=== PATIENT | male | born 1945 | race Caucasian/White ===

== ENCOUNTER 2024-08-24 09:50 | Day surgery (SDC) | payer OTHER, SELFPAY ==
[2024-08-24] VITALS (9 sets, daily range): BP systolic 109–168; BP diastolic 68–83; PULSE 81–105; RESP 12–23; TEMP 36.3–36.6; O2SAT 93–99; BMI 18.8
[2024-08-24] MEDS: DiphenhydrAMINE INJ 50 MG/ML VIAL 25 MG IV (11:32)
[2024-08-24] MEDS: fentaNYL CIT INJ 50 mCg/ML AMP 2ML (ASD USE ONLY) IV (11:45)
[2024-08-24] MEDS: MIDAZOLAM INJ 1 MG/ML VIAL 2 ML (ASD USE ONLY) 2 MG IV (11:45)
== END 2024-08-24 12:40 | disposition home or self-care (01) ==
PROVIDERS: PCP Internal Medicine; Referring Provider Specialist; Visit Provider Specialist
PROC: 0DBE8ZX Excision of Large Intestine, Via Natural or Artificial Opening Endoscopic, Diagnostic (ICD-10-PCS; CPT 45380; principal; 2024-08-24 13:15)
DX: K64.9 Unspecified hemorrhoids (principal); K57.30 Diverticulosis of large intestine without perforation or abscess without bleeding
CPT/HCPCS: 45378; J1200; J2250; J3010

== ENCOUNTER → 2024-10-30 | Outpatient (CLI) | payer OTHER, SELFPAY ==
[2024-10-30 11:38] LABS: Basophils # (Auto) 0.1 Thou/mm3 (0.0-0.2); Basophils % (Auto) 1 % (0-2.5); Eosinophils # (Auto) 1.7 Thou/mm3 (0.0-0.5); Eosinophils % (Auto) 19 % (0-10); Hematocrit 41.1 % (41.0-53.0); Hemoglobin 13.3 g/dL (13.5-16.0); Immature Granulocytes % (Auto) 0 % (0-0); Immature Granulocytes Auto 0.03 Thou/mm3 (0.00-0.00); Lymphocytes # (Auto) 1.4 Thou/mm3 (1.0-4.8); Lymphocytes % (Auto) 16 % (10-50); Mean Corpuscular HGB Conc 32.4 g/dl (31.0-37.0); Mean Corpuscular Volume 90 fL (80-100); Monocytes # (Auto) 0.7 Thou/mm3 (0.0-0.8); Monocytes % (Auto) 8 % (0-12); Neutrophils % (Auto) 56 % (37-80); Nucleated Red Blood Cell % 0 /100 WBC (0); Platelet Count 332 Thou/mm3 (140-440); RDW Standard Deviation 46.5 fL (35.1-43.9); Red Blood Count 4.59 Miln/mm3 (4.50-5.90); White Blood Count 8.9 Thou/mm3 (3.8-10.6)
[2024-10-30 12:10] LABS: Folate > 24.00 ng/mL (>5.38); Vitamin B12 1289 pg/mL (211-911); Vitamin D 25 Hydroxy Total 76.1 ng/mL (7.3-40.2)
[2024-10-30 12:23] LABS: Alanine Aminotransferase 16 U/L (10-49); Albumin, Serum 4.1 gm/dL (3.4-4.8); Alkaline Phosphatase 85 U/L (46-116); Anion Gap 5 (7-16); Aspartate Amino Transferase 20 U/L (0-34); BUN/Creatinine Ratio 16 Ratio (12-20); Bilirubin,Total 0.5 mg/dL (0.3-1.2); Blood Urea Nitrogen 14 mg/dL (9-23); Calcium 9.4 mg/dL (8.3-10.6); Calcium (Corrected) 9.4 mg/dL (8.5-10.1); Carbon Dioxide 28.8 mMol/L (20.0-31.0); Chloride 104 mMol/L (98-107); Creatinine (Component) 0.9 mg/dL (0.6-1.3); Free T4 (Free Thyroxine) 1.33 ng/dL (0.89-1.76); Globulin 2.1 gm/dL (2.3-3.5); Glucose 91 mg/dL (74-106); Iron 129 mcg/dL (65-175); Osmolality,Calculated 276 (275-295); Potassium 4.5 mMol/L (3.4-5.1); Sodium 138 mMol/L (136-145); Thyroid Stimulating Hormone 0.63 uIU/mL (0.55-4.78); Total Protein 6.2 gm/dL (5.7-8.2); eGFR > 60 See Note
[2024-10-30 13:45] LABS: Ferritin 41 ng/mL (10.5-307.3)
[2024-10-30 13:46] LABS: Glucose Estimated Average 108 mg/dL (80-131); Hemoglobin A1C 5.4 % Hgb (4.8-6.0)
[2024-10-30 13:47] LABS: Cardiac Risk Estimate 3.3 RATIO (4.0-6.7); Cholesterol 208 mg/dL (132-200); HDL Cholesterol 64 mg/dL (40-60); LDL Cholesterol,Calculated 117 mg/dL (0-130); Triglycerides 134 mg/dL (30-150)
== END | disposition home or self-care (01) ==
LOC: COPL 10:17
PROVIDERS: PCP Internal Medicine; Referring Provider Internal Medicine; Visit Provider Internal Medicine
DX: Z00.00 Encounter for general adult medical examination without abnormal findings (principal)
CPT/HCPCS: 36415; 80053; 80061; 82306; 82607; 82728; 82746; 83036; 83540; 84439; 84443; 85025

== ENCOUNTER 2025-07-15 15:06 | Emergency (ER) | payer OTHER, SELFPAY ==
[2025-07-15 15:35] VITALS: BP 145/80; PULSE 77; RESP 17; TEMP 36.8; O2SAT 95; BMI 19.1
--- NOTE | 2025-07-15 15:47 | PD.EDHIP ---
Lower Extremity Injury RME/HPI General Chief Complaint: Hip Injury/Pain Stated Complaint: L HIP PAIN FOR WEEKS WORSE TODAY Time Seen by Provider: 07/15/25 15:44 Arrival date/time: 07/15/25 15:06 79-year-old male presents to the Emergency Department today for complaints of left hip pain patient report symptoms ongoing times a few weeks intermittently patient reports no numbness or tingling reports no fever or vomiting. Reports no flank pain. Limitations: no limitations Related Data Home Medications ?Medication ?Instructions ?Recorded ?Confirmed amlodipine 2.5 mg tablet 2.5 mg PO QDAY ##180 08/17/16 08/24/24 tamsulosin 0.4 mg capsule 0.4 mg PO QDAY ##90 08/17/16 08/24/24 finasteride 5 mg tablet 5 mg PO QDAY 02/08/21 08/24/24 fluticasone fur. 200 mcg-umeclid 1 inh inhalation QDAY 08/24/24 08/24/24 62.5 mcg-vilant 25 mcg inhalat.powder (Trelegy Ellipta) pantoprazole 40 mg tablet,delayed 40 mg PO QDAY 08/24/24 08/24/24 release Previous Rx's ?Medication ?Instructions ?Recorded cyclobenzaprine 5 mg tablet 5 mg PO TID PRN muscle spasm #30 07/15/25 tabs hydrocodone 5 mg-acetaminophen 325 1 tab PO BID PRN pain #10 tabs 07/15/25 mg tablet Allergies Allergy/AdvReac Type Severity Reaction Status Date / Time Iodinated Contrast Media Allergy Severe DIFFICULTY Verified 07/15/25 15:09 BREATHING SHELLFISH Allergy Intermediate ITCHING Uncoded 07/15/25 15:09 HIVES Review of Systems Review of Systems Systems Reviewed: All systems reviewed, normal except as documented Constitutional Constitutional: Reports system reviewed and no additional complaints, except as documented, Denies fever(s) and Denies headache(s) Eyes Eyes: Reports system reviewed and no additional complaints, except as documented and Denies blurry vision ENT Ears, Nose, Mouth, and Throat: Reports system reviewed and no additional complaints, except as documented, Denies headache(s), Denies nasal congestion and Denies nasal discharge Cardiovascular Cardiovascular: Reports system reviewed and no additional complaints, except as documented, Denies chest pain and Denies dyspnea Respiratory Respiratory: Reports system reviewed and no additional complaints, except as documented, Denies chest congestion, Denies cough and Denies dyspnea Gastrointestinal Gastrointestinal: Reports system reviewed and no additional complaints, except as documented and Denies abdominal pain Musculoskeletal Musculoskeletal: Reports system reviewed and no additional complaints, except as documented, Reports arthralgias, Denies deformity and Reports other (Hip pain left knee) Integumentary/Breasts Skin/Breast: Reports system reviewed and no additional complaints, except as documented and Denies rash Neurologic Neurologic: Reports system reviewed and no additional complaints, except as documented, Reports as per HPI and Denies headache(s) Past Medical History Past Medical History NEUROLOGIC: Negative Neurological Disorders or Seizures CARDIAC: Positive Cardiac Disorders, Hypercholesterolemia and Hypertension; Negative Congestive Heart Failure RESPIRATORY: Negative Chronic Obstructive Pulmonary Disease (COPD) GASTROINTESTINAL: Positive Gastrointestinal Disorders, Hemorrhoids and Gastroesophageal Reflux Disease GENITOURINARY: Positive Genitourinary Disorders and Benign Prostatic Hyperplasia; Negative Renal Disease MUSCULOSKELETAL: Positive Musculoskeletal Disorders and Scoliosis ENT: Positive Glaucoma ENDOCRINE: Negative Diabetes Mellitus Type 1 or Diabetes Mellitus Type 2 HEMATOLOGIC: Positive Blood Disorders and Anemia OTHER HISTORY: Positive Falls, Chicken Pox, Measles and Pertussis; Negative Hospitalization, Down Syndrome, Developmental Delay, Blood Transfusions or Anesthesia Reactions Surgical History SURGICAL: Positive Eye Surgery, Tonsillectomy and Adenoidectomy Social History SMOKING STATUS: Heavy (> 1 pack/day) ED Exam General Limitations: Present no limitations General appearance: Present alert and in no apparent distress Head Head exam: Present atraumatic, normocephalic and normal inspection Eye Eye exam: Present normal appearance, PERRL and EOMI; Absent conjunctival injection ENT ENT exam: Present normal exam, normal oropharynx and mucous membranes moist Neck Neck exam: Present normal inspection, full ROM and trachea midline Chest Chest inspection: Present normal inspection and symmetric chest wall rise Respiratory Respiratory exam: Present normal lung sounds bilaterally Cardiovascular Cardiovascular exam: Present regular rate, normal rhythm and normal heart sounds Abdominal Exam Abdominal exam: Present soft and normal bowel sounds; Absent distention or tenderness Extremities Exam Extremities exam: Present normal inspection, full ROM and tenderness (Left buttock pain radiating down left leg) Back Exam Back exam: Present normal inspection and full ROM; Absent tenderness Neurological Exam Neurological exam: Present alert, oriented X3 and CN II-XII intact Psychiatric Psychiatric exam: Present normal affect and normal mood Skin Skin exam: Present warm, dry, intact and normal color Course Quality Measures none Orders Category Date Time Status Dexamethasone Inj [Decadron Inj] Med 07/15/25 15:44 Discontinued 10 mg PO X1 ONE Ketorolac Inj [Toradol Inj] Med 07/15/25 15:44 Discontinued 30 mg IM X1 ONE Vital Signs Vital signs: Vital Signs Temperature 98.2 F 07/15/25 15:35 Pulse Rate 77 07/15/25 15:35 Respiratory Rate 17 07/15/25 15:35 Blood Pressure 145/80 H 07/15/25 15:35 Pulse Oximetry (%) 95 07/15/25 15:35 Oxygen Delivery Method Room Air 07/15/25 15:35 O2 saturation 95% on room air within normal limits Extremity Injury, Lower MDM Narrative MDM Narrative:: 79-year-old male presents to the Emergency Department today for complaints of left hip pain patient report symptoms ongoing times a few weeks intermittently patient reports no numbness or tingling reports no fever or vomiting. Reports no flank pain. On exam patient well-appearing patient is not appear look toxic distress patient does have pain left sciatic notch worse with movement Symptoms consistent with sciatica Imaging considered but not ordered Patient pain medication or discharge home with pain medications Explained to patient he needs to follow-up with his PCP for further evaluation and imaging for worsening symptoms return immediately Patient data External records reviewed:: [facility] previous records Clinical information provided by:: patient Social determinants that could affect healthcare access:: none Patient has the following chronic illnesses:: History How is presenting disease/condition affected by chronic disease/condition?: uneffected by Evaluation data The following diagnostics were reviewed and interpreted by me:: other (specify) (N/A) Lab and/or radiology exams considered but not ordered:: Considered not ordered Interpretation Summary: N/A Medications / Prescriptions Medications or Prescriptions considered but not ordered:: Given Medication administrations:: Medication Administration History Discontinued Medications Dexamethasone Sodium Phosphate (Dexamethasone Sod Phos Inj 10 Mg/Ml Vial) 10 mg PO X1 ONE Stop: 07/15/25 15:45 Last Admin: 07/15/25 16:17 Dose: 10 mg Documented By: SHERRIE Ketorolac Tromethamine (Ketorolac Inj 30 Mg/Ml Vial) 30 mg IM X1 ONE Stop: 07/15/25 15:45 Last Admin: 07/15/25 16:18 Dose: 30 mg Documented By: SHERRIE Given Consultations Consultation(s) initiated? (list below): No Diagnosis Extremity Injury, Lower Differential Diagnosis: other (Hip pain, hip strain) Most likely diagnosis given after review of the tests above:: Hip pain left, sciatica Admission Indicated Admission indicated?: not indicated Admission Request Was there a request for admission?: No Disposition Plan Disposition Plan: Discharge Discharge Attestation Discharge Attestation: The patient and all family members were given an opportunity to ask questions and understood the discharge instructions. Discharge instructions specifically effects, indications for sooner follow up or return to the emergency department, and the expected course of current diagnosis. Patient condition: Stable Discharge Plan Plan Patient Disposition: HOME (Self Care) Discharge Disposition comment: Stable Prescriptions/Referrals Prescriptions/Med Rec: New hydrocodone-acetaminophen 5-325 mg tablet 1 tab PO BID MDD 10 PRN (Reason: pain) Qty: 10 0RF cyclobenzaprine 5 mg tablet 5 mg PO TID PRN (Reason: muscle spasm) Qty: 30 0RF No Action amlodipine 2.5 mg Tablet 2.5 mg PO QDAY Qty: 180 tamsulosin 0.4 mg Capsule 0.4 mg PO QDAY Qty: 90 finasteride 5 mg Tablet 5 mg PO QDAY pantoprazole 40 mg tablet,delayed release (DR/EC) 40 mg PO QDAY Patient Comments: TAKE 1 TABLET BY MOUTH EVERY DAY Trelegy Ellipta 200-62.5-25 mcg blister with device 1 inh INHALATION QDAY Patient Comments: INHALE 1 PUFF BY MOUTH ONCE A DAY Problem List Clinical Impression: Left sided sciatica Patient/Caregiver Discharge Instructions Education Materials: ED Sciatica Additional Instructions: Please follow up with your primary care doctor in the next 24-48hrs for any worsening symptoms return here immediately Print Language: Australian Stand Alone Forms: Cheryl Award Info., Patient Portal Info Letter PA/SUPPORT SERVICES TECH Supervising Physician PA/SUPPORT SERVICES TECH Supervising Physician: Dr. bass
[2025-07-15] MEDS: DEXAMETHASONE SOD PHOS INJ 10 MG/ML VIAL PO (16:17)
[2025-07-15] MEDS: KETOROLAC INJ 30 MG/ML VIAL IM (16:18)
== END 2025-07-15 18:35 | disposition home or self-care (01) ==
LOC: SERX 16:06
PROVIDERS: Emergency Provider Family Medicine; PCP Internal Medicine
DX: M54.32 Sciatica, left side (principal)
CPT/HCPCS: 96372; 99283; J1100; J1885